=== PATIENT | female | born 1995 | race Hispanic/Latino ===

== ENCOUNTER 2021-08-05 19:34 | Emergency (ER) | payer OTHER ==
[~2021-08-05] VITALS: Ht 154.9 cm; Wt 95.3 kg
[2021-08-05] MEDS ORDERED: KETOROLAC 60 MG VIAL (30MG/ML) IM ONE ×2 (20:21→20:30)
[2021-08-05] MEDS ORDERED: HYDROCODONE/ACETAMINOPHEN 5/325 MG TAB ONE (20:21)
[2021-08-05] MEDS ORDERED: CYCLOBENZAPRINE HCL 10 MG TABLET ONE (20:21)
[2021-08-05] MEDS ORDERED: HYDROCODONE/ACETAMINOPHEN 5/325 MG TAB PO ONE (20:30)
[2021-08-05] MEDS ORDERED: CYCLOBENZAPRINE HCL 10 MG TABLET PO ONE (20:30)
[2021-08-05] MEDS ORDERED: CYCL10TA16 PO (22:07)
[2021-08-05] MEDS ORDERED: NAPR-1180 PO (22:07)
[2021-08-05 22:08] VITALS: BP 113/70
== END 2021-08-05 22:18 | disposition home or self-care (01) ==
LOC: EDH 19:34
DX: M47.816 Spondylosis without myelopathy or radiculopathy, lumbar region (principal); E66.01 Morbid (severe) obesity due to excess calories; Z68.39 Body mass index [BMI] 39.0-39.9, adult; Z79.1 Long term (current) use of non-steroidal anti-inflammatories (NSAID)
CPT/HCPCS: 72100; 81025; 96372; 99284; J1885